=== PATIENT | male | born 1960 | race Caucasian/White ===

== ENCOUNTER → 2018-03-25 | Outpatient (CLI) | payer OTHER ==
[2018-03-25 18:15] LABS: Basophils % (A) 1 %; Eosinophils # (A) 0.2 k/uL (0-0.7); Eosinophils % (A) 3 %; HCT 46.2 % (39.0-53.0); Lymphocytes # (A) 1.8 k/uL (1.0-4.8); Lymphocytes % (A) 33 %; MCH 30.6 pg (25.0-35.0); MCHC 32.4 g/dL (31.0-37.0); MCV 94.7 fL (80.0-100.0); Mean Platelet Volume 6.6; Monocytes # (A) 0.3 k/uL (0-1.0); Monocytes % (A) 5 %; Neutrophils % (A) 57 %; Platelet Count 190 k/uL (150-450); RBC 4.88 m/uL (4.30-5.90); RDW 12.9 % (11.5-15.5); WBC 5.3 k/uL (3.8-10.6)
[2018-03-25 18:22] LABS: Calcium 9.8 mg/dL (8.4-10.2); Potassium 4.8 mmol/L (3.5-5.1)
== END | disposition home or self-care (01) ==
LOC: LABPAT 16:28
PROVIDERS: ATTEND Urology
DX: Z01.818 Encounter for other preprocedural examination (principal); Z01.812 Encounter for preprocedural laboratory examination; R53.83 Other fatigue; C61 Malignant neoplasm of prostate; Z79.899 Other long term (current) drug therapy
CPT/HCPCS: 36415; 80048; 85025; 86850; 86900; 86901; 93005

== ENCOUNTER 2018-03-31 10:16 | Inpatient (IN) | payer OTHER ==
--- NOTE | 2018-03-30 11:37 | P.GSHP ---
History of Present Illness H&P Date: 03/24/18 Chief Complaint: Prostate cancer The patient is a 57-year-old white male evaluated for an elevated PSA level of 12.34. JULIA revealed the prostate to be moderately enlarged but a nodular. A repeat PSA level was 11.9. In view of this, he underwent a prostate ultrasound , revealing a prostate volume of 33 mL with no echogenic abnormalities. All 6 right-sided biopsies were negative. However, he was found to have Sarah 6 adenocarcinoma in the left lateral apex, and [place] 7 (4+3) adenocarcinoma at the left apex and left lateral base. Alternative treatment options were reviewed with the patient and his in detail. He is felt to be a poor candidate for active surveillance, and he was thus advised that optimal treatment would consist of radiation therapy or surgery. He has elected to undergo a robotic-assisted laparoscopic prostatectomy (RALP). Examination reveals a moderate left inguinal hernia, which will be repaired by Dr. Gay at the time of surgery. - Cardiovascular Cardiovascular: Denies chest pain - Respiratory Respiratory: Denies dyspnea - Genitourinary (Male) Genitourinary: Reports erectile dysfunction Past Medical History - Past Family History Mother Family Medical History: No Reported History Medications and Allergies Home Medications Medication Instructions Recorded Confirmed Type ALPRAZolam [Xanax] 0.25 mg PO DAILY PRN 03/25/18 03/25/18 History Citalopram Hydrobromide 40 mg PO HS 03/25/18 03/25/18 History [Citalopram HBr] Levothyroxine Sodium 125 mcg PO QAM 03/25/18 03/25/18 History Allergies Allergy/AdvReac Type Severity Reaction Status Date / Time No Known Allergies Allergy Verified 03/25/18 10:50 Surgical - Exam - General well developed, well nourished, no distress - Respiratory normal respiratory effort, clear to auscultation - Cardiovascular Rhythm: regular Abnormal Heart Sounds: no systolic murmur, no diastolic murmur, no rub, no S3 Gallop, no S4 Gallop, no click, no other - Abdomen Abdomen: soft, non tender, no guarding, no rigid, no rebound Hernia: inguinal (left) - Genitourinary normal penis with no external lesions, testicles non-tender - Rectum Rectum: normal sphincter tone, no masses, other (Prostate mildly enlarged and smooth) - Psychiatric oriented to time, oriented to person, oriented to place, speech is normal, memory intact Assessment and Plan (1) Adenocarcinoma of prostate Status: Acute Code(s): C61 - MALIGNANT NEOPLASM OF PROSTATE SNOMED Code(s): 999617863 Plan: Robotic-assisted laparoscopic prostatectomy (RALP) with bilateral pelvic lymphadenectomy. The procedure has been reviewed in detail with the patient and his . It has been decided to perform a right nerve sparing procedure. The anticipated perioperative course has been discussed, along with potential risks. These include anesthesia, bleeding, infection, neurovascular injury, bowel injury, urinary leak, lymphocele, and vesical neck contracture. The patient is aware of the likelihood of postoperative urinary incontinence, which may be permanent. He also understands the likelihood of erectile dysfunction despite preservation of the neurovascular bundles. The possible need to convert to an open procedure was discussed, as was the possible need for adjuvant therapy. The left inguinal hernia will be repaired by Dr. Gay as a combined procedure.
[~2018-03-31 10:16] MED LIST: DEXAMETHASONE SOD PHOSPHATE 10 MG/ML 1 ML VIAL IV ONE; HEPARIN SODIUM,PORCINE 5,000 UNIT/ML 1 ML VIAL SQ ONE; HYDROmorphone 0.5 MG/0.5 ML SYRINGE IVP PRN; LIDOCAINE 1% 20 ML VIAL (10MG/ML) FOR IV START INTRADERMA PRN; MIDAZOLAM (PF) 2 MG/2 ML VIAL IV PRN; ONDANSETRON 4 MG/2 ML VIAL IVP ONE; ceFAZolin IN SWFI 2 GM/20 ML SYRINGE IVP ONE; fentaNYL (PF) 50 MCG/ML 2 ML AMP IV PRN
[2018-03-31] MEDS: LACTATED RINGERS 1,000 ML IV SCH (11:11)
[2018-03-31] MEDS ORDERED: NEOSTIGMINE 1 MG/ML 10 ML VIAL ONE (11:33)
[2018-03-31] MEDS ORDERED: GLYCOPYRROLATE 0.2 MG/ML 2 ML VIAL ONE (11:33)
[2018-03-31] MEDS ORDERED: HYDROmorphone (PF) 1 MG/ML ONE (11:33)
[2018-03-31] MEDS ORDERED: fentaNYL (PF) 50 MCG/ML 2 ML AMP ONE (11:33)
[2018-03-31] MEDS ORDERED: LIDOCAINE 1% INJ 10MG/ML (20 ML MDV) ONE (11:33)
[2018-03-31] MEDS ORDERED: SUCCINYLCHOLINE CHLORIDE VIAL 200 MG/10 ML VIAL IV ONE (11:33)
[2018-03-31] MEDS ORDERED: MIDAZOLAM 2 MG/2 ML VIAL ONE (11:33)
[2018-03-31] MEDS ORDERED: PROPOFOL 10 MG/ML 20 ML VIAL IV ONE (11:33)
[2018-03-31] MEDS ORDERED: VECURONIUM 10 MG VIAL IV ONE (11:33)
[2018-03-31] MEDS ORDERED: BUPIVACAINE (PF) 0.25% 30 ML VIAL SQ ONE ×2 (12:29→17:16)
[2018-03-31] MEDS ORDERED: LACTATED RINGERS 1,000 ML IV ONE ×4 (12:50→18:13)
[2018-03-31] MEDS ORDERED: ACETAMINOPHEN TAB 325 MG TAB PO PRN (16:45)
--- NOTE | 2018-03-31 17:40 | P.OP ---
Date of Procedure: 03/31/18 Procedure(s) Performed: PREOPERATIVE DIAGNOSIS: Left inguinal hernia POSTOPERATIVE DIAGNOSIS: Same PROCEDURE: Bilateral laparoscopic inguinal hernia repair with mesh using the da Rahat robot SURGEON: Deidra EBL: Minimal ANESTHESIA: Gen. COMPLICATIONS: None OPERATIVE PROCEDURE: Patient was taken to the operating room by Dr. Burns for a da Rahat assisted laparoscopic prostatectomy. The peritoneum was incised by urology and the preperitoneal dissection took place. After the prostatectomy was complete I assessed the pelvis laparoscopically. A indirect left inguinal hernia had been identified and reduced. There was a suggestion of a possible indirect hernia on the right as well. I decided to place a probe with mesh bilaterally to cover all potential hernia sites. These were overlapped centrally. These covered both inguinal and femoral spaces. Once the mesh was appropriately placed without sutures the peritoneal closure took place. The peritoneal closure was very lengthy and required a total of 4 9 inch 20V lock sutures. A small defect was then later closed using a [id number] 3-0 Vicryl stitch in the peritoneum. This provided excellent closure. Away from the mesh site a few small 5-7 mm defects were left so that lymphatic fluid could drain back into the peritoneal cavity and not be trapped up against our mesh. The remainder the procedure will be dictated separately by Dr. Burns.
[2018-03-31] MEDS: ONDANSETRON 4 MG/2 ML VIAL IVP PRN (18:18)
--- NOTE | 2018-03-31 18:55 | P.OP ---
Date of Procedure: 03/31/18 Preoperative Diagnosis: Adenocarcinoma of the Prostate Postoperative Diagnosis: Same Procedure(s) Performed: Robotic-assisted Laparoscopic Prostatectomy (RALP) with Bilateral Pelvic Lymphadenectomy Anesthesia: SHAUN Surgeon: Gerald Burns Claims Analyst #1: Stephanie Coe Estimated Blood Loss (ml): 100 IV fluids (ml): 1,500 Pathology: other (Prostate, seminal vesicles, pelvic lymph nodes) Condition: stable Disposition: PACU Indications for Procedure: The patient is a 57-year-old white male evaluated for an elevated PSA level of 12.34. JULIA revealed the prostate to be moderately enlarged but a nodular. A repeat PSA level was 11.9. In view of this, he underwent a prostate ultrasound , revealing a prostate volume of 33 mL with no echogenic abnormalities. All 6 right-sided biopsies were negative. However, he was found to have Sarah 6 adenocarcinoma in the left lateral apex, and [place] 7 (4+3) adenocarcinoma at the left apex and left lateral base. Alternative treatment options were reviewed with the patient and his in detail. He is felt to be a poor candidate for active surveillance, and he was thus advised that optimal treatment would consist of radiation therapy or surgery. He has elected to undergo a robotic-assisted laparoscopic prostatectomy (RALP). Examination reveals a moderate left inguinal hernia, which will be repaired by Dr. Gay at the time of surgery. Operative Findings: No evidence of extraprostatic disease. The left inguinal hernia was identified , and was repaired by Dr. Gay. This will be dictated separately. Description of Procedure: The patient was taken in the operating room and placed in the dorsal lithotomy position, with his legs supported in Steven stirrups. He was carefully positioned on a beanbag for stability. The abdomen and external genitalia were prepped and draped sterilely. A Kirkpatrick catheter was inserted. The Veress needle was passed through the anterior abdominal wall immediately cephalad to the umbilicus, and insufflation was performed to a pressure of 20 mm Hg. Once insufflation was performed, the Veress needle was removed and a supraumbilical incision was made, through which a 12 mm camera port was placed. Under camera guidance, 3 8 mm robotic ports were placed, 2 on the left and one on the right. An additional 12 mm port was placed on the right lateral side for use as an pet care assistant port. A 5 mm port was placed to the right of the camera port for suction. The patient was placed in Trendelenburg position, and docking was then performed to the da Rahat system utilizing a 4-arm approach. The abdomen was examined. The sigmoid colon was mobilized out of the pelvis. The peritoneum was incised widely, lateral to the medial umbilical ligaments bilaterally, exposing the pubis. The peritoneum was then incised across the midline, allowing the bladder flap to be taken down. A direct left inguinal hernia was identified, and the hernia sac was carefully retracted back into the abdomen. The endopelvic fascia was opened bilaterally, and muscular attachments from the urogenital diaphragm were swept away from the prostate. Bilateral pelvic lymphadenectomies were performed in the standard fashion. The peritoneal incisions were extended in a cephalad direction, and the vas deferens were divided bilaterally. Margins of dissection were the bifurcation of the iliac vessels proximally, the circumflex iliac vein distally, the external iliac artery laterally, and the obturator nerve medially. A combination of sharp and blunt dissection was used. Care was taken to avoid any neurovascular injury, and the use of monopolar electrocautery was avoided immediately adjacent to neurovascular structures. The lymphatic package was clipped distally. No enlarged lymph nodes were encountered. There were no complications. The vesical neck was incised transversely, down to the lumen. The Kirkpatrick catheter was brought out through the anterior vesical neck incision and was used for traction. The posterior aspect of the vesical neck was incised, such that the full-thickness of the vesical neck was divided. The anterior layer of the Denonvilliers fascia was incised, exposing the vas deferens. Each were isolated and divided. Next, each of the seminal vesicles were dissected away from adjacent tissues, and vascular attachments were cauterized and divided. The posterior leaf of Denonvilliers fascia was incised transversely, allowing entry into the plane between the prostate and rectum. With lateral spreading, this plane was developed down to the apex. This exposed the lateral vascular pedicles bilaterally. These were clipped and divided in an antegrade fashion, down to the apex. The use of electrocautery was avoided on the right side, to prevent thermal damage to the nerves, and the plane of dissection on the right side was immediately adjacent to the prostate to preserve the neurovascular bundle. No attempt was made to preserve the left neurovascular bundle.. The remaining apical attachments were swept away from the prostate. The dorsal venous complex was incised, as well as periurethral tissue. At this point, only the urethra remained intact. This was transected immediately distal to the prostatic apex using cold scissors. The specimen was placed within a specimen bag. The dorsal venous complex was sutured using a V-Loc suture in a running fashion. The suture was passed through the periosteum of the pubis periurethral support. A second V-Loc suture was then used to place the Anthony stitch, incorporating the rhabdosphincter and the edge of Denonvilliers fascia. This allowed the bladder to be taken down to the urethra, leaving the vesical neck immediately adjacent to the urethra. The vesicourethral anastomosis was then performed using a V-Loc suture in a running fashion. After completing the anastomosis, an 18-Maltese Kirkpatrick catheter was placed and approximately 150 mL of 0.9 normal saline were instilled into the bladder. No extravasation of irrigant from the vesicourethral anastomosis was noted. A small amount of oozing was noted from the right lateral vascular pedicle, so Surgicel was placed over this. Tisseel was sprayed into the pelvis over the vascular pedicles, dorsal vein, and vesicourethral anastomosis. At this time, Dr. Gay performed an inguinal hernia repair, which he will dictate separately. Once this was completed, the patient was returned to the supine position. Undocking was performed, and the specimen bag sutures were passed through the camera port. After removing all the ports and allowing all of the CO2 to be released from the peritoneal cavity, the camera port incision was enlarged to allow removal of the surgical specimen. The fascia of this incision was then closed using 0 Vicryl suture in an interrupted figure-of- eight fashion. Each of the skin incisions were then closed using 4-0 Monocryl suture in a subcuticular fashion. Marcaine was injected at each of the incision sites. Dermabond was applied to each incision. The Kirkpatrick catheter was connected to gravity drainage. All sponge and needle counts were correct. The patient tolerated the procedure well was taken to the recovery room in stable condition.
[2018-03-31 19:48] VITALS: BMI 32.4
[2018-03-31] MEDS: KETOROLAC 30 MG/ML 1 ML VIAL IVP PRN (19:55)
[2018-03-31] MEDS: ALPRAZolam 0.25 MG TAB PO PRN (19:55)
[2018-03-31] MEDS: HEPARIN SODIUM,PORCINE 5,000 UNIT/ML 1 ML VIAL SQ SCH (19:56)
[2018-03-31] MEDS: CITALOPRAM HYDROBROMIDE 20 MG TAB PO SCH (21:27)
[2018-03-31] MEDS: DEXTROSE 5%-0.45% NACL 1,000 ML IV SCH (21:27)
[2018-04-01] MEDS: HYDROmorphone 1 MG/ML 1 ML SYRINGE IVP PRN ×2 (00:38→09:21)
[2018-04-01] MEDS ORDERED: SODIUM CHLORIDE 0.9% 500 ML 500 ML IV ONE (02:05)
[2018-04-01] MEDS: DEXTROSE 5%-0.45% NACL 1,000 ML IV SCH ×3 (03:28→21:45)
[2018-04-01] MEDS: LACTATED RINGERS 1,000 ML IV SCH (03:28)
[2018-04-01] MEDS: KETOROLAC 30 MG/ML 1 ML VIAL IVP PRN (04:05)
[2018-04-01] MEDS: ONDANSETRON 4 MG/2 ML VIAL IVP PRN ×2 (04:16→16:19)
[2018-04-01] MEDS: LEVOTHYROXINE 125 MCG TAB PO SCH (06:04)
[2018-04-01] MEDS: HEPARIN SODIUM,PORCINE 5,000 UNIT/ML 1 ML VIAL SQ SCH ×2 (09:21→20:03)
[2018-04-01] MEDS ORDERED: HYDROcodone/APAP 5-325MG 1 EACH TAB PO PRN (11:26)
--- NOTE | 2018-04-01 12:19 | P.PN ---
<ChelNathalia Sandra - Last Filed: 04/01/18 12:16> Subjective Progress Note Date: 04/01/18 HISTORY OF PRESENT ILLNESS: Patient is s/p bilateral inguinal hernia repair. POD #1. Patient states his pain is tolerable. Passing flatus. Tolerating liquid diet. Requesting diet to be advanced. PHYSICAL EXAM: VITAL SIGNS: Currently stable. GENERAL: Well-developed in no acute distress. HEENT: No sclera icterus. Extraocular movements grossly intact. Moist buccal mucosa. Head is atraumatic, normocephalic. Hears conversational speech. No nasal drainage. NECK: Supple without lymphadenopathy. CHEST: Non-labored respirations and equal bilateral excursions. CARDIOVASCULAR: Regular rate with regular rhythm. Palpable 2+ radial pulses. ABDOMEN: Soft. Nondistended. Surgical incision sites clean and dry without drainage. MUSCULOSKELETAL: No clubbing, cyanosis or edema. NEUROLOGIC: No focal or lateralizing signs. Cranial nerves II through XII grossly intact. PSYCH: Appropriate affect. Alert and oriented to person, place and time. SKIN: Well perfused. Good skin turgor. ASSESSMENT: 1. S/P bilateral inguinal hernia repair PLAN: 1. May advance diet as tolerated 2. Pain control 3. Incentive spirometry 4. Increase activity as tolerated Nurse practitioner note has been reviewed by physician. Signing provider agrees with the documented findings, assessment, and plan of care. Objective - Vital Signs Vital signs: Vital Signs Temp 98.5 F 04/01/18 07:00 Pulse 66 04/01/18 07:00 Resp 16 04/01/18 07:00 BP 94/53 04/01/18 07:00 Pulse Ox 95 04/01/18 07:00 Intake & Output 03/31/18 04/01/18 04/01/18 18:59 06:59 18:59 Intake Total 3200 375 Output Total 540 400 Balance 2660 -25 Intake: IV 3200 Intake, IV Titration 375 Amount Dextrose 5%-0.45% NaCl 1, 375 000 ml @ 125 mls/hr IV . Q8H [facility] Rx#:[id number] Output: Urine 440 400 Estimated Blood Loss 100 Other: Voiding Method Indwelling Catheter Indwelling Catheter <Ford Gay - Last Filed: 04/01/18 16:44> Subjective As above. Patient doing well. Pain is well-controlled. He would like to go home today. Follow-up as outpatient. Objective - Vital Signs Vital signs: Vital Signs Temp 98.5 F 04/01/18 07:00 Pulse 64 04/01/18 15:00 Resp 16 04/01/18 15:00 BP 108/56 04/01/18 15:00 Pulse Ox 98 04/01/18 15:00 Intake & Output 03/31/18 04/01/18 04/01/18 18:59 06:59 18:59 Intake Total 3200 375 Output Total 637 501 1745 Balance 2659 Intake: IV 3200 Intake, IV Titration 375 Amount Dextrose 5%-0.45% NaCl 1, 375 000 ml @ 125 mls/hr IV . Q8H [facility] Rx#:[id number] Output: Urine 815 959 1804 Uretheral (Kirkpatrick) 1600 Estimated Blood Loss 100 Other: Voiding Method Indwelling Catheter Indwelling Catheter
[2018-04-01] MEDS: HYDROcodone/APAP 5-325MG 1 EACH TAB PO PRN ×2 (14:44→19:16)
--- NOTE | 2018-04-01 18:19 | P.PN ---
Subjective Progress Note Date: 04/01/18 Principal diagnosis: POD #1, s/p RALP Patient was oliguric overnight but responded to fluid bolus. He is tolerating CLD but reports gas pain. Was somewhat dizzy when he ambulated. Objective - Vital Signs Vital signs: Vital Signs Temp 98.5 F 04/01/18 07:00 Pulse 64 04/01/18 15:00 Resp 16 04/01/18 15:00 BP 108/56 04/01/18 15:00 Pulse Ox 98 04/01/18 15:00 Intake & Output 03/31/18 04/01/18 04/01/18 18:59 06:59 18:59 Intake Total 3200 375 Output Total 860 407 7611 Balance 2660 Intake: IV 3200 Intake, IV Titration 375 Amount Dextrose 5%-0.45% NaCl 1, 375 000 ml @ 125 mls/hr IV . Q8H [facility] Rx#:[id number] Output: Urine 946 580 5414 Uretheral (Kirkpatrick) 1600 Estimated Blood Loss 100 Other: Voiding Method Indwelling Catheter Indwelling Catheter - Constitutional General appearance: Present: average body habitus, cooperative, no acute distress - Gastrointestinal Gastrointestinal Comment(s): Soft, non-distended. Incisions clean and dry. Urine clear per Kirkpatrick. Assessment and Plan (1) Adenocarcinoma of prostate Current Visit: Yes Status: Acute Code(s): C61 - MALIGNANT NEOPLASM OF PROSTATE SNOMED Code(s): 088691249 Plan: Patient is overall doing well. Ambulation encouranged. Anticipate discharge home tomorrow.
[2018-04-01] MEDS: CITALOPRAM HYDROBROMIDE 20 MG TAB PO SCH (20:03)
[2018-04-01] MEDS: ALPRAZolam 0.25 MG TAB PO PRN (20:21)
[2018-04-02] MEDS: HYDROcodone/APAP 5-325MG 1 EACH TAB PO PRN ×3 (00:32→09:31)
[2018-04-02] MEDS: DEXTROSE 5%-0.45% NACL 1,000 ML IV SCH ×2 (03:01→09:30)
[2018-04-02] MEDS: LEVOTHYROXINE 125 MCG TAB PO SCH (05:09)
[2018-04-02] MEDS: LACTATED RINGERS 1,000 ML IV SCH (05:09)
[2018-04-02 07:32] VITALS: BP 95/60; PULSE 64; RESP 12; TEMP 98
[2018-04-02] MEDS: HEPARIN SODIUM,PORCINE 5,000 UNIT/ML 1 ML VIAL SQ SCH (08:15)
--- NOTE | 2018-04-02 09:33 | P.DS ---
Providers Date of admission: 03/31/18 10:16 Expected date of discharge: 04/02/18 Attending physician: Gerald Burns Primary care physician: Checo Haji - Discharge Diagnosis(es) (1) Adenocarcinoma of prostate Current Visit: Yes Status: Acute Hospital Course: On the day of admission, the patient underwent an uncomplicated robotic assisted laparoscopic prostatectomy (RALP) with bilateral pelvic lymphadenectomy and inguinal hernia repair. He was somewhat oliguric on the night of surgery, but responded well to a fluid bolus. He remained afebrile with stable vital signs throughout the postoperative course. He reported significant discomfort and some nausea on the first postoperative day, which was much improved on the second postoperative day. He was tolerating clear liquids and ambulating without difficulty. The incisions were clean and dry. Procedures: RALP with bilateral pelvic lymphadenectomy and inguinal hernia repair on 2018. Patient Condition at Discharge: Good Plan - Discharge Summary Discharge Rx Participant: Yes New Discharge Prescriptions: New Ciprofloxacin HCl [Cipro] 250 mg PO Q12HR #6 tablet Hydrocodone/Acetaminophen [[place] 5-325] 1 - 2 each PO Q4HR PRN #6 tab PRN Reason: Pain No Action ALPRAZolam [Xanax] 0.25 mg PO DAILY PRN PRN Reason: Anxiety Levothyroxine Sodium 125 mcg PO QAM Citalopram Hydrobromide [Citalopram HBr] 40 mg PO HS Discharge Medication List ALPRAZolam [Xanax] 0.25 mg PO DAILY PRN 03/25/18 [History] Citalopram Hydrobromide [Citalopram HBr] 40 mg PO HS 03/25/18 [History] Levothyroxine Sodium 125 mcg PO QAM 03/25/18 [History] Ciprofloxacin HCl [Cipro] 250 mg PO Q12HR #6 tablet 04/01/18 [Rx] Hydrocodone/Acetaminophen [[place] 5-325] 1 - 2 each PO Q4HR PRN #6 tab 04/01/18 [ Rx] Follow up Appointment(s)/Referral(s): Ford Gay MD [Medical Doctor] - 04/21/18 8:40 am Gerald Burns MD [STAFF PHYSICIAN] - 04/08/18 2:20 pm Patient Instructions/Handouts: Kirkpatrick Catheter Placement and Care (DC), Urinary Leg Bag (GEN) Activity/Diet/Wound Care/Special Instructions: Discharge home with Kirkpatrick catheter. Instruct patient to use overnight drainage bag as well as urinary leg bag. Okay to shower. Diet as tolerated. No lifting , driving, or strenuous activity. Reassure patient that abdominal wall ecchymosis and penoscrotal swelling are normal. Instruct patient to begin taking antibiotics one day prior to Kirkpatrick catheter removal. Discharge Disposition: HOME SELF-CARE
== END 2018-04-02 11:15 | disposition home or self-care (01) | DRG 708 ==
LOC: 2ORMAIN 10:16 → 4SSUR 17:28
PROVIDERS: ADMIT Urology; ATTEND Urology
PROC: 0VT04ZZ Resection of Prostate, Percutaneous Endoscopic Approach (ICD-10-PCS; 2018-03-31)
PROC: 07TC4ZZ Resection of Pelvis Lymphatic, Percutaneous Endoscopic Approach (ICD-10-PCS; 2018-03-31)
PROC: 8E0W4CZ Robotic Assisted Procedure of Trunk Region, Percutaneous Endoscopic Approach (ICD-10-PCS; 2018-03-31)
PROC: 0YUA4JZ Supplement Bilateral Inguinal Region with Synthetic Substitute, Percutaneous Endoscopic Approach (ICD-10-PCS; principal; 2018-03-31 12:00)
PROC: 8E0W4CZ Robotic Assisted Procedure of Trunk Region, Percutaneous Endoscopic Approach (ICD-10-PCS; 2018-03-31 12:00)
DX: C61 Malignant neoplasm of prostate (principal); K40.20 Bilateral inguinal hernia, without obstruction or gangrene, not specified as recurrent; N52.9 Male erectile dysfunction, unspecified; Z79.890 Hormone replacement therapy; Z79.899 Other long term (current) drug therapy
CPT/HCPCS: 86850; 86900; 86901; 88305; 88307; 88309

== ENCOUNTER → 2018-05-05 | Outpatient (CLI) | payer OTHER | LOC: LABWHC1 17:11 | PROVIDERS: ATTEND Urology | DX: C61 Malignant neoplasm of prostate (principal) | CPT/HCPCS: 36415; 84153 ==

== ENCOUNTER 2020-07-25 07:35 | Day surgery (SDC) | payer OTHER ==
[2020-07-24 08:51] VITALS: BMI 34.5
[~2020-07-25 07:35] MED LIST changes: -DEXAMETHASONE SOD PHOSPHATE 10 MG/ML 1 ML VIAL IV ONE; +DEXAMETHASONE SOD PHOSPHATE 4 MG/ML 1 ML VIAL IV ONE; +DEXAMETHASONE SOD PHOSPHATE 4 MG/ML 1 ML VIAL IV PRN; +FAMOTIDINE 20 MG/2 ML VIAL IV PRN; -HEPARIN SODIUM,PORCINE 5,000 UNIT/ML 1 ML VIAL SQ ONE; +LACTATED RINGERS 1,000 ML IV SCH; -LIDOCAINE 1% 20 ML VIAL (10MG/ML) FOR IV START INTRADERMA PRN; -MIDAZOLAM (PF) 2 MG/2 ML VIAL IV PRN; +ONDANSETRON 4 MG/2 ML VIAL IVP PRN; -ceFAZolin IN SWFI 2 GM/20 ML SYRINGE IVP ONE; -fentaNYL (PF) 50 MCG/ML 2 ML AMP IV PRN
[2020-07-25] MEDS ORDERED: LIDOCAINE 1% (10MG/ML) FOR IV START INTRADERMA ONE (08:15)
[2020-07-25] MEDS ORDERED: SCOPOLAMINE 1.5MG/72HR PATCH TRANSDERM ONE (08:20)
[2020-07-25] MEDS ORDERED: DEXAMETHASONE SOD PHOSPHATE 4 MG/ML 1 ML VIAL IV ONE (08:20)
[2020-07-25] MEDS ORDERED: ONDANSETRON 4 MG/2 ML VIAL IVP ONE (08:20)
[2020-07-25] MEDS ORDERED: LIDOCAINE 1% INJ 10MG/ML (20 ML MDV) ONE (09:17)
[2020-07-25] MEDS ORDERED: ePHEDrine SULFATE/0.9% NACL/PF 50 MG/5 ML SYRINGE IV ONE (09:17)
[2020-07-25] MEDS ORDERED: SUCCINYLCHOLINE CHLORIDE VIAL 200 MG/10 ML VIAL IV ONE (09:17)
[2020-07-25] MEDS ORDERED: fentaNYL (PF) 50 MCG/ML 2 ML AMP ONE (09:17)
[2020-07-25] MEDS ORDERED: MIDAZOLAM 2 MG/2 ML VIAL ONE (09:17)
[2020-07-25] MEDS ORDERED: PROPOFOL 10 MG/ML 20 ML VIAL IV ONE (09:17)
[2020-07-25] MEDS ORDERED: LIDOCAINE 2%-EPI 1:100,000 20 ML VIAL SQ ONE ×2 (09:45)
[2020-07-25] MEDS ORDERED: BUPIVACAINE (PF) 0.5% 30 ML VIAL SQ ONE (09:50)
[2020-07-25] MEDS ORDERED: BACITRACIN 50,000 UNIT VIAL TOPICAL ONE (10:16)
[2020-07-25 10:38] VITALS: TEMP 97.1
--- NOTE | 2020-07-25 10:49 | P.OP ---
Date of Procedure: 07/25/20 Preoperative Diagnosis: 10 by 4 cm occipital mass Postoperative Diagnosis: Same Procedure(s) Performed: Excision of a 10 x 4 cm occipital mass with complex closure Anesthesia: JULIENA Surgeon: Tarun Guzman Estimated Blood Loss (ml): 20 Pathology: other (Occipital mass) Condition: stable Disposition: PACU Indications for Procedure: This patient first noticed a occipital mass approximately 1 year ago. Over the last 2 months it has grown relatively quickly and surgical removal was recommended. All risks, benefits, and alternative therapies were discussed. Consent was obtained and all questions were answered. Operative Findings: Large occipital mass with a lymphoid appearance tightly adherent to the surrounding tissue suspect malignancy suspected lymphoma pending pathology analysis Description of Procedure: This patient was taken to the operative room and placed in the supine position a general inhalation anesthetic was administered the patient by mask and subsequently intubated with a cuffed endotracheal tube the department of anesthesia with a functioning IV line in place. The patient was monitored throughout the entire case by the department of anesthesia. The hair was removed from the overlying mass and the patient was placed in a lateral recumbent position. The area was injected with lidocaine and bupivacaine with epinephrine and 10 minutes were allowed wait for full vasoconstrictive effects t o take place. An incision was made overlying this mass and we dissected the skin and surrounding tissues away from the mass. His mass closure 10 x 4 cm and was found to be tightly adherent to the surrounding tissue. This mass was completely removed with meticulous dissection. Hemostasis was obtained with use of electrocauterization and the use of 10 mL of FloSeal. Extensive undermining was performed in all directions and this was closed with a complex closure utilizing 3-0 PDS and deep subcutaneous tissue 3-0 PDS and a deep dermal layer 4-0 Monocryl in the mid dermal layer and the skin was closed with a 50 rapid Vicryl in a running locking fashion. Excellent approximation was obtained. Follow-up will be in the office in 1 week. A frozen section was requested regarding this suspicious mass but they were unable to make a diagnosis.
[2020-07-25 11:40] VITALS: RESP 18
[2020-07-25 11:53] VITALS: BP 132/78; PULSE 78
== END 2020-07-25 12:08 | disposition home or self-care (01) ==
LOC: OR 07:35
PROVIDERS: ATTEND Otolaryngology
DX: C83.31 Diffuse large B-cell lymphoma, lymph nodes of head, face, and neck (principal); E03.9 Hypothyroidism, unspecified; L71.9 Rosacea, unspecified; Z98.890 Other specified postprocedural states; Z79.890 Hormone replacement therapy; Z79.899 Other long term (current) drug therapy; Z87.891 Personal history of nicotine dependence; G47.33 Obstructive sleep apnea (adult) (pediatric); Z85.46 Personal history of malignant neoplasm of prostate; F41.9 Anxiety disorder, unspecified; F32.9 Major depressive disorder, single episode, unspecified
CPT/HCPCS: 21554; 88305; 88342; 88331; 88309; 88341; C1762; J2250; J0330; J1100; J2405; J0690; J2001; J3010; J2704

== ENCOUNTER → 2020-08-15 | Outpatient (CLI) | payer OTHER ==
--- NOTE | 2020-08-15 11:05 | ECHOF ---
Referral Reason:[id number] MEASUREMENTS -------- HEIGHT: 182.9 cm WEIGHT: 117.9 kg BP: 126/71 RVIDd: 3.5 cm (< 3.3) IVSd: 1.3 cm (0.6 - 1.1) LVIDd: 4.7 cm (3.9 - 5.3) LVPWd: 1.4 cm (0.6 - 1.1) IVSs: 2.0 cm LVIDs: 2.4 cm LVPWs: 1.6 cm LAESV Index (A-L): 24.19 ml/m Ao Diam: 3.7 cm (2.0 - 3.7) AV Cusp: 2.4 cm (1.5 - 2.6) MV EXCURSION: 22.495 mm (> 18.000) MV EF SLOPE: 144 mm/s (70 - 150) EPSS: 0.4 cm MV E Nestor: 0.64 m/s MV DecT: 319 ms MV A Nestor: 0.85 m/s MV E/A Ratio: 0.74 FINDINGS -------- Sinus rhythm. This was a technically adequate study. The left ventricular size is normal. There is mild concentric left ventricular hypertrophy. Overa ll left ventricular systolic function is normal with, an EF between 60 - 65 %. The right ventricle is mildly enlarged. Normal LA size by volume 22+/-6 ml/m2. The right atrium is normal in size. Interatrial and interventricular septum intact. There is mild aortic valve sclerosis. The mitral valve is normal. The tricuspid valve appears structurally normal. Unable to estimate RVSP due to inadequate TR jet s pectral doppler profile. There is no pulmonic regurgitation present. The aortic root size is normal. IVC Not well visulized. There is no pericardial effusion. CONCLUSIONS -------- 1. The left ventricular size is normal. 2. There is mild concentric left ventricular hypertrophy. 3. Overall left ventricular systolic function is normal with, an EF between 60 - 65 %. 4. The right ventricle is mildly enlarged. 5. There is no pericardial effusion. TENN[employer] DESK TEAM MEMBER: Apple Guevara [facility]
== END | disposition home or self-care (01) ==
LOC: RADECHMAIN 08:23
PROVIDERS: ATTEND Internal Medicine Hematology & Oncology
DX: Z01.818 Encounter for other preprocedural examination (principal); I51.7 Cardiomegaly
CPT/HCPCS: 93306

== ENCOUNTER 2020-08-16 09:18 | Day surgery (SDC) | payer OTHER ==
[2020-08-15 08:38] VITALS: BMI 36.2
[~2020-08-16 09:18] MED LIST changes: +ACETAMINOPHEN TAB 500 MG TAB PO PRN; -DEXAMETHASONE SOD PHOSPHATE 4 MG/ML 1 ML VIAL IV PRN; -FAMOTIDINE 20 MG/2 ML VIAL IV PRN; +HEPARIN SODIUM,PORCINE/PF 5,000 UNIT/0.5 ML SYRINGE SQ PRN; +MIDAZOLAM 2 MG/2 ML VIAL IV PRN; -ONDANSETRON 4 MG/2 ML VIAL IVP PRN; +Pre Op ABX Message 1 EACH MISC MISCELLANE ONE; +SCOPOLAMINE 1.5MG/72HR PATCH TRANSDERM ONE
[2020-08-16] MEDS ORDERED: LIDOCAINE 1% (10MG/ML) FOR IV START INTRADERMA ONE (09:50)
[2020-08-16] MEDS ORDERED: ceFAZolin 3 GM in SODIUM CHLORIDE 0.9% 100 ML IVPB STA (10:34)
--- NOTE | 2020-08-16 10:35 | P.GSHP ---
History of Present Illness H&P Date: 08/16/20 Chief Complaint: Lymphoma 60-year-old male with recent diagnosis of B-cell lymphoma. Patient was seen by oncology. He is starting chemotherapy next week. Patient here today for Port-A-Cath placement for administration of chemotherapy. Past Medical History Past Medical History: Cancer, Sleep Apnea/CPAP/BIPAP, Thyroid Disorder Additional Past Medical History / Comment(s): prostate CA-no radiation or chemo 2019,uses cpap, recent dx of lymphoma History of Any Multi-Drug Resistant Organisms: None Reported Past Surgical History: Prostate Surgery Additional Past Surgical History / Comment(s): FACIAL SURGERY,prostatectomy, mass removed from back of neck 07/25/20 Past Anesthesia/Blood Transfusion Reactions: Postoperative Nausea & Vomiting (PONV) Smoking Status: Former smoker - Past Family History Mother Family Medical History: No Reported History Medications and Allergies Home Medications Medication Instructions Recorded Confirmed Type Citalopram Hydrobromide 40 mg PO HS 03/25/18 08/15/20 History [Citalopram HBr] Levothyroxine Sodium 125 mcg PO QAM 03/25/18 08/15/20 History Meloxicam 15 mg PO DAILY 08/15/20 08/15/20 History Allergies Allergy/AdvReac Type Severity Reaction Status Date / Time No Known Allergies Allergy Verified 08/16/20 09:38 Surgical - Exam Vital Signs Temp Pulse Resp BP Pulse Ox 97.7 F 68 16 114/87 96 08/16/20 09:42 08/16/20 09:42 08/16/20 09:42 08/16/20 09:42 08/16/20 09:42 Physical exam: General: Well-developed, well-nourished HEENT: Normocephalic, sclerae nonicteric Abdomen: Nontender, nondistended Extremities: No edema Neuro: Alert and oriented Assessment and Plan (1) Lymphoma Narrative/Plan: Will proceed with Port-A-Cath placement at this time. Risks of bleeding, infection, DVT, pneumothorax, catheter malfunction, anesthesia related complications were discussed. The patient understands and wishes to proceed. Current Visit: Yes Status: Acute Code(s): C85.90 - NON-HODGKIN LYMPHOMA, U NSPECIFIED, UNSPECIFIED SITE SNOMED Code(s): 055410357
[2020-08-16] MEDS ORDERED: LIDOCAINE 1% INJ 10MG/ML (20 ML MDV) ONE (10:46)
[2020-08-16] MEDS ORDERED: PROPOFOL 10 MG/ML 20 ML VIAL IV ONE (10:46)
[2020-08-16] MEDS ORDERED: MIDAZOLAM 2 MG/2 ML VIAL ONE (10:46)
[2020-08-16] MEDS ORDERED: SUCCINYLCHOLINE CHLORIDE 100 MG/5 ML SYR IV ONE (10:46)
[2020-08-16] MEDS ORDERED: fentaNYL (PF) 50 MCG/ML 2 ML AMP ONE (10:46)
[2020-08-16] MEDS ORDERED: LIDOCAINE (PF) 10 MG/ML 2 ML VIAL SQ ONE (11:19)
[2020-08-16] MEDS ORDERED: HEPARIN SODIUM,PORCINE 100 UNIT/ML 5 ML VIAL IV ONE (11:19)
[2020-08-16] MEDS ORDERED: HYDROcodone/APAP 5-325MG 1 EACH TAB PO PRN (11:55)
[2020-08-16] MEDS ORDERED: NALOXONE 0.4 MG/ML 1 ML VIAL IV PRN (11:55)
--- NOTE | 2020-08-16 11:57 | P.OP ---
Date of Procedure: 08/16/20 Procedure(s) Performed: PREOPERATIVE DIAGNOSIS: Lymphoma POSTOPERATIVE DIAGNOSIS: Same PROCEDURE: Port-A-Cath placement with fluoroscopic and ultrasound guidance SURGEON: Deidra EBL: Minimal ANESTHESIA: Sedation COMPLICATIONS: None OPERATIVE PROCEDURE: Patient was brought and placed on the operative table in the supine position. The patient was sedated per anesthesia that time. The chest and neck were prepped and draped in usual sterile fashion. The ultrasound probe was used to identify the location of the right internal jugular vein. The skin was localized with lidocaine. The Seldinger needle was advanced into the IJ under ultrasound guidance. The wire was advanced through the needle under fluoroscopic guidance into the superior vena cava. A port pocket was created in the right infraclavicular location. The catheter was tunneled from the wire entrance site to the port pocket. The port was then connected to the catheter. The dilator introducer was threaded over the guidewire. The guidewire and dilator were then removed. The catheter was advanced through the introducer and introducer was then removed. The tip was seen to be in the right atrial junction via fluoroscopy. A picture of the radiograph showing the tip at the radial digital junction was taken. Port was flushed with both saline and a Hep- Lock solution. There was good flow both in and out of the port. The port was sutured in underlying tissues using 3-0 silk sutures. The subcutaneous tissues were reapproximated using 3-0 Vicryl sutures and the skin at both locations using 4-0 Monocryl sutures. Skin glue and sterile dressings then applied. DISPOSITION: Stable to recovery room
[2020-08-16 12:08] VITALS: TEMP 97
[2020-08-16 12:21] VITALS: RESP 16
--- NOTE | 2020-08-16 12:25 | XR ---
EXAMINATION TYPE: XR chest 1V confirm line [facility] DATE OF EXAM: 08/16/2020 HISTORY: Shortness of breath. COMPARISON: None. TECHNIQUE: Single view of the chest is submitted. FINDINGS: MediPort catheter is noted with its distal tip overlying the SVC. No evidence for pneumothorax. There is no evidence for focal infiltrate. The heart is stable. Hilar and mediastinal structures are within normal limits. Degenerative changes are seen of the dorsal spine. IMPRESSION: 1. Chronic changes without evidence for acute pulmonary disease.
--- NOTE | 2020-08-16 12:29 | FL ---
Fluoroscopy History: PORT A CATH Fluoroscopy utilized for Port-A-Cath placement.
[2020-08-16 12:59] VITALS: PULSE 70
[2020-08-16 13:17] VITALS: BP 119/73
== END 2020-08-16 13:20 | disposition home or self-care (01) ==
LOC: OR 09:18
PROVIDERS: ATTEND Surgery
DX: Z45.2 Encounter for adjustment and management of vascular access device (principal); C85.10 Unspecified B-cell lymphoma, unspecified site; Z79.1 Long term (current) use of non-steroidal anti-inflammatories (NSAID); Z79.899 Other long term (current) drug therapy; Z85.46 Personal history of malignant neoplasm of prostate; Z87.891 Personal history of nicotine dependence; Z90.79 Acquired absence of other genital organ(s)
CPT/HCPCS: 36561; 77001; C1788; J2250; J2001 ×2; J1642; J1100; J0690; J2405; J3010; J0330; J2704; J1644

== ENCOUNTER → 2020-10-18 | Outpatient (CLI) | payer OTHER ==
--- NOTE | 2020-10-22 06:37 | PE ---
EXAMINATION TYPE: PET CT fusion skull to thigh DATE OF EXAM: 10/18/2020 COMPARISON: Outside PET/CT August 13, 2020 HISTORY: History of diffuse large B-cell lymphoma diagnosed right neck July 2020 completed chemothera py 2 weeks ago. History of prostate cancer 2019 TECHNIQUE: Following the intravenous administration of 11.54 mCi of F-18 FDG, whole body images are performed from the skull base to the midthigh. Images are reviewed on the computer in the coronal, a xial, and sagittal planes. Reconstructed rotating images are created on independent workstation and reviewed on the computer. A localization and attenuation correction CT is performed in conjunction with the PET scan. Blood glucose level equals 109. SCAN: Subsequent Scan FINDINGS: Mean SUV mediastinum: 1.2 Mean SUV liver: 2.24 SKULL BASE AND NECK: Abnormal soft tissue right occipital region diminished in size measuring 5.2 x 1.3 cm axial image 24 versus 7.3 x 2.1 cm prior study image 21, max SUV at this level significantly i mproved is 1.92 versus 19.2 noted on prior outside report. No new areas of abnormal hypermetabolic uptake. CHEST, MEDIASTINUM, AND HILAR REGION: No new areas of abnormal hypermetabolic uptake. ABDOMEN AND PELVIS: Normal excretion is present. No new areas of abnormal hypermetabolic uptake. OSSEOUS STRUCTURES: New Mild diffuse osseous uptake presumed post treatment response. OTHER CT: New Right internal jugular Mediport catheter terminating just past brachiocephalic confluen ce. Moderate coronary artery calcification. Low lung volumes. Mild cardiomegaly. Xuqg-bg-[id number] bib asilar linear scarring and/or atelectasis. Rim calcified gallstone redemonstrated. Mild fat replaced atrophy of the pancreas again seen. Prostat e surgically absent. Scattered tiny pelvic phleboliths noted. Multilevel spurring in the spine. IMPRESSION: Interval positive treatment response as detailed above.
== END | disposition home or self-care (01) ==
LOC: RADPETMAIN 10:22
PROVIDERS: ATTEND Internal Medicine Hematology & Oncology
DX: C83.31 Diffuse large B-cell lymphoma, lymph nodes of head, face, and neck (principal); M79.89 Other specified soft tissue disorders; I25.10 Atherosclerotic heart disease of native coronary artery without angina pectoris; R91.8 Other nonspecific abnormal finding of lung field; K80.20 Calculus of gallbladder without cholecystitis without obstruction; K86.89 Other specified diseases of pancreas; Z85.72 Personal history of non-Hodgkin lymphomas; Z85.46 Personal history of malignant neoplasm of prostate
CPT/HCPCS: 78815; A9552

== ENCOUNTER → 2021-01-03 | Outpatient (CLI) | payer OTHER ==
--- NOTE | 2021-01-06 08:22 | PE ---
EXAMINATION TYPE: PET CT fusion skull to thigh DATE OF EXAM: 01/03/2021 COMPARISON: Prior PET/CT October 18, 2020 and August 13, 2020 HISTORY: Large B-cell lymphoma diagnosed on back of neck excision July 2020. Completed chemotherapy 4 weeks ago. History of prostate cancer 2019. TECHNIQUE: Following the intravenous administration of 7.66 mCi of F-18 FDG, whole body images are p erformed from the skull base to the midthigh. Images are reviewed on the computer in the coronal, ax ial, and sagittal planes. Reconstructed rotating images are created on independent workstation and r eviewed on the computer. A localization and attenuation correction CT is performed in conjunction w ith the PET scan. Blood glucose level equals 95. SCAN: Subsequent Scan FINDINGS: Mean SUV mediastinum: 0.81 Mean SUV liver: 2.25 SKULL BASE AND NECK: Abnormal soft tissue right occipital region stable in size measuring approximat tia 5.3 cm in length axial image 17 versus 7 most recent prior study image 22, max SUV at this level is 2.2 to versus 1.92 on most recent prior. Mild adjacent skin thickening redemonstrated. No new areas of abnormal hypermetabolic uptake in the neck. CHEST, MEDIASTINUM, AND HILAR REGION: No new areas of abnormal hypermetabolic uptake. ABDOMEN AND PELVIS: Normal excretion is present. No new areas of abnormal hypermetabolic uptake. OSSEOUS STRUCTURES: Marked improvement in Mild diffuse osseous uptake presumed post treatment respons e. No new areas of suspicious hypermetabolic focal uptake OTHER CT: Stable Right internal jugular Mediport catheter . Mild to moderate coronary artery calcific ation redemonstrated. Low lung volumes with elevated right hemidiaphragm redemonstrated. Stable Mild cardiomegaly. Onjq-ow-weepcdkf bibasilar linear scarring and/or atelectasis redemonstrated. Rim calcified gallstone redemonstrated. Mild fat replaced atrophy of the pancreas again seen. Prostat e surgically absent. Scattered tiny pelvic phleboliths redemonstrated. Multilevel spurring in the spi ne. Increased cervical curvature cause spinal canal narrowing or stenosis in the cervical spine simil ar to prior studies IMPRESSION: Continued positive treatment response. No new areas of abnormal hypermetabolic adenopathy or disease identified.
== END | disposition home or self-care (01) ==
LOC: RADPETMAIN 13:15
PROVIDERS: ATTEND Internal Medicine Hematology & Oncology
DX: C83.31 Diffuse large B-cell lymphoma, lymph nodes of head, face, and neck (principal); Z85.46 Personal history of malignant neoplasm of prostate
CPT/HCPCS: 78815; A9552

== ENCOUNTER 2021-01-12 12:29 | Emergency (ER) | payer OTHER ==
--- NOTE | 2021-01-12 13:41 | ED ---
URI HPI - General Chief Complaint: Upper Respiratory Infection Stated Complaint: cough Time Seen by Provider: 01/12/21 12:34 Source: patient, RN notes reviewed Mode of arrival: ambulatory Limitations: no limitations - History of Present Illness Initial Comments: Patient is a 60-year-old male with history of lymphoma, thyroid disorder, presenting to emergency Department with complaints of a cough, chest congestion over the past day. He would like a cold test. He denies any fevers or chills, no abdominal pain, no nausea or vomiting. He has no chest pain or shortness of breath. He states he's been taking Mucinex at home. Patient has no further complaints. His vital signs are stable upon arrival. - Related Data Home Medications Medication Instructions Recorded Confirmed Citalopram Hydrobromide 40 mg PO HS 03/25/18 08/15/20 [Citalopram HBr] Levothyroxine Sodium 125 mcg PO QAM 03/25/18 08/15/20 Meloxicam 15 mg PO DAILY 08/15/20 08/15/20 Allergies Allergy/AdvReac Type Severity Reaction Status Date / Time No Known Allergies Allergy Verified 01/12/21 12:49 Review of Systems ROS Statement: Those systems with pertinent positive or pertinent negative responses have been documented in the HPI. ROS Other: All systems not noted in ROS Statement are negative. Past Medical History Past Medical History: Cancer, Sleep Apnea/CPAP/BIPAP, Thyroid Disorder Additional Past Medical History / Comment(s): mass back of head,prostate CA-no radiation or chemo 2019,uses cpap History of Any Multi-Drug Resistant Organisms: None Reported Additional Past Surgical History / Comment(s): FACIAL SURGERY,prostatectomy Past Anesthesia/Blood Transfusion Reactions: Postoperative Nausea & Vomiting (PONV) Past Psychological History: Anxiety, Depression Smoking Status: Former smoker - Past Family History Mother Family Medical History: No Reported History General Exam - General Exam Comments Initial Comments: GENERAL: Patient is well-developed and well-nourished. Patient is nontoxic and in no acute distress. HEAD: Atraumatic, normocephalic. EYES: Pupils equal round and reactive to light, extraocular movements intact, sclera anicteric, conjunctiva are normal. Eyelids were unremarkable. ENT: Oropharynx clear without exudates. Moist mucous membranes. NECK: Normal range of motion, supple without lymphadenopathy or JVD. LUNGS: Unlabored respirations. Breath sounds clear to auscultation bilaterally and equal. No wheezes rales or rhonchi. HEART: Regular rate and rhythm without murmurs, rubs or gallops. ABDOMEN: Soft, nontender, normoactive bowel sounds. No guarding, no rebound. No masses appreciated. MUSCULOSKELETAL: Normal extremities with adequate strength and normal range of motion, no pitting or edema. No clubbing or cyanosis. NEUROLOGICAL: Patient is alert and oriented x 3. SKIN: Warm, Dry, normal turgor, no rashes or lesions noted. Limitations: no limitations Course Vital Signs 01/12/21 12:44 Temperature 98.8 F Pulse Rate 83 Respiratory 18 Rate Blood Pressure 125/83 O2 Sat by Pulse 97 Oximetry Medical Decision Making - Medical Decision Making patient is a 60-year-old male here wanting a Covid test. He's had congestion and cough for 1 day. His vital signs are stable, exam is unremarkable. His rapid Covid is negative. I discussed with the patient is most likely viral in nature, he may continue with Mucinex for his symptoms. I recommended following up with his primary care. He is agreeable to this plan of care and he is stable for discharge. Return parameters were discussed with him and he verbalized understanding. - Lab Data Lab Results 01/12/21 Range/Units 12:51 Coronavirus (PCR) Not Detected (Not Detectd) Disposition Clinical Impression: Viral respiratory illness Disposition: HOME SELF-CARE Condition: Stable Instructions (If sedation given, give patient instructions): Upper Respiratory Infection (ED) Additional Instructions: Please return to the Emergency Department if symptoms worsen or any other concerns. Rapid covid test today is negative. Recommend continuing with Mucinex for your symptoms. Please follow-up with your primary care. Is patient prescribed a controlled substance at d/c from ED?: No Referrals: Checo Haji Jr, DO [Primary Care Provider] - 1-2 days Time of Disposition: 13:41
[2021-01-12 14:04] VITALS: BP 128/88; PULSE 80; RESP 16; TEMP 98.2
== END 2021-01-12 14:03 | disposition home or self-care (01) ==
LOC: EC 12:29
DX: J06.9 Acute upper respiratory infection, unspecified (principal); E07.9 Disorder of thyroid, unspecified; F41.9 Anxiety disorder, unspecified; F32.A Depression, unspecified; Z87.891 Personal history of nicotine dependence; Z85.46 Personal history of malignant neoplasm of prostate; Z20.822 Contact with and (suspected) exposure to COVID-19
CPT/HCPCS: 87635; 99283

== ENCOUNTER → 2021-03-24 | Outpatient (CLI) | payer OTHER ==
--- NOTE | 2021-03-24 15:04 | CT ---
EXAMINATION TYPE: CT ChestAbdPelvis w con DATE OF EXAM: 03/24/2021 COMPARISON: PET CT fusion 01/03/2021 HISTORY: B-cell lymphoma CT DLP: 2219 mGycm CONTRAST: CT scan of the chest, abdomen and pelvis is performed with Oral Contrast and with IV Contrast, patien t injected with 100 ml mL of Isovue 300. CT Chest: LUNGS: The lungs are clear and free of infiltrate or atelectasis. No pulmonary nodule or mass is det ected. No pleural effusion or CT evidence of interstitial lung disease. MEDIASTINUM: Thoracic aorta is of normal caliber. The heart is not enlarged. No evidence for media stinal mass or adenopathy. Linear parenchymal scar right lower lobe. Chronic elevation right hemidiap hragm. HILAR STRUCTURES: No evidence for mass. No hilar adenopathy is appreciated. OTHER: No significant abnormality. CONTRAST CT ABDOMEN AND PELVIS FINDINGS: LIVER/GB: Hepatic steatosis. Cholelithiasis. No space occupying hepatic lesion. Biliary tree is of normal caliber. PANCREAS: No inflammation. No distinct mass. SPLEEN: No splenic enlargement. No lesion seen. ADRENALS: No nodule. No thickening. KIDNEYS/BLADDER: No hydronephrosis. No nephrolithiasis. No distinct renal mass. BOWEL: Normal appendix. Normal bowel caliber. No inflammation. GENITAL ORGANS: No gross abnormality. LYMPH NODES: No greater than 1cm abdominal or pelvic lymph nodes are appreciated. AORTA: No significant abnormality. OSSEOUS STRUCTURES: No significant abnormality is seen. OTHER: No significant additional abnormality is seen. IMPRESSION: 1. No evidence for adenopathy throughout the chest abdomen or pelvis.
== END | disposition home or self-care (01) ==
LOC: RADCTMAIN 12:41
PROVIDERS: ATTEND Internal Medicine Hematology & Oncology
DX: C83.31 Diffuse large B-cell lymphoma, lymph nodes of head, face, and neck (principal)
CPT/HCPCS: 71260; 74177; Q9967

== ENCOUNTER 2021-04-28 06:27 | Day surgery (SDC) | payer OTHER ==
[2021-04-25 09:15] VITALS: BMI 36.6
[~2021-04-28 06:27] MED LIST changes: -DEXAMETHASONE SOD PHOSPHATE 4 MG/ML 1 ML VIAL IV ONE; -HYDROmorphone 0.5 MG/0.5 ML SYRINGE IVP PRN; +LIDOCAINE 1% (10MG/ML) FOR IV START INTRADERMA PRN; -MIDAZOLAM 2 MG/2 ML VIAL IV PRN; -ONDANSETRON 4 MG/2 ML VIAL IVP ONE; -Pre Op ABX Message 1 EACH MISC MISCELLANE ONE; -SCOPOLAMINE 1.5MG/72HR PATCH TRANSDERM ONE; +ceFAZolin 3 GM in SODIUM CHLORIDE 0.9% 100 ML IVPB PRN
[2021-04-28 06:50] VITALS: TEMP 97.5
[2021-04-28] MEDS ORDERED: HYDROmorphone 0.5 MG/0.5 ML SYRINGE IVP PRN (07:00)
[2021-04-28] MEDS ORDERED: ONDANSETRON 4 MG/2 ML VIAL ONE (07:03)
[2021-04-28] MEDS ORDERED: ONDANSETRON 4 MG/2 ML VIAL IVP ONE (07:12)
--- NOTE | 2021-04-28 07:27 | P.GSHP ---
History of Present Illness H&P Date: 04/28/21 Chief Complaint: Lymphoma 60-year-old male here today for Port-A-Cath removal. Patient recently completed his chemotherapy for lymphoma. No issues with the port at this time. Past Medical History Past Medical History: Cancer, Sleep Apnea/CPAP/BIPAP, Thyroid Disorder Additional Past Medical History / Comment(s): PROSTATE CA 2019., LARGE B-CELL LYMPHOMA WITH LAST CHEMO NOV 2020)., C-PAP MACHINE., HYPOTHYROID., ROSACEA. History of Any Multi-Drug Resistant Organisms: None Reported Past Surgical History: Prostate Surgery Additional Past Surgical History / Comment(s): PROSTATECTOMY WITH INGUINAL HERNIA (2018., MASS AT BACK OF HEAD REMOVED AND DIAGNOSED WITH LYMPHOMA (2020)., PORT-A-CATH Past Anesthesia/Blood Transfusion Reactions: Postoperative Nausea & Vomiting (PONV) Past Psychological History: Anxiety, Depression Smoking Status: Former smoker Past Alcohol Use History: None Reported Additional Past Alcohol Use History / Comment(s): quit smoking approx 2015, smoked on and off less than a ppd. Past Drug Use History: None Reported - Past Family History Mother Family Medical History: No Reported History Medications and Allergies Home Medications Medication Instructions Recorded Confirmed Type Citalopram Hydrobromide 40 mg PO DAILY 03/25/18 04/28/21 History [Citalopram HBr] Levothyroxine Sodium 125 mcg PO QAM 03/25/18 04/28/21 History Doxycycline [Vibramycin] 100 mg PO DAILY 04/25/21 04/28/21 History Allergies Allergy/AdvReac Type Severity Reaction Status Date / Time No Known Allergies Allergy Verified 04/28/21 06:45 Surgical - Exam Vital Signs Temp Pulse Resp BP Pulse Ox 97.5 F L 77 16 129/87 98 04/28/21 06:49 04/28/21 06:49 04/28/21 06:49 04/28/21 06:49 04/28/21 06:49 Physical exam: General: Well-developed, well-nourished HEENT: Normocephalic, sclerae nonicteric Abdomen: Nontender, nondistended Extremities: No edema Neuro: Alert and oriented Right chest wall Port-A-Cath in place Assessment and Plan (1) Lymphoma Narrative/Plan: 60-year-old male with history of lymphoma. Will remove Port-A-Cath this time. Current Visit: No Status: Acute Code(s): C85.90 - NON-HODGKIN LYMPHOMA, UNSPECIFIED, UNSPECIFIED SITE SNOMED Code(s): 964635266
[2021-04-28] MEDS ORDERED: MIDAZOLAM 2 MG/2 ML VIAL ONE (07:36)
[2021-04-28] MEDS ORDERED: fentaNYL (PF) 50 MCG/ML 2 ML AMP ONE (07:36)
[2021-04-28] MEDS ORDERED: PROPOFOL 10 MG/ML 20 ML VIAL IV ONE (07:36)
[2021-04-28] MEDS ORDERED: LIDOCAINE (PF) 10 MG/ML 5ML AMP SQ ONE ×2 (07:53)
[2021-04-28] MEDS ORDERED: NALOXONE 0.4 MG/ML 1 ML VIAL IV PRN (08:31)
--- NOTE | 2021-04-28 08:32 | P.OP ---
Date of Procedure: 04/28/21 Procedure(s) Performed: PREOPERATIVE DIAGNOSIS: Lymphoma POSTOPERATIVE DIAGNOSIS: Same PROCEDURE: Port-A-Cath removal SURGEON: Deidra EBL: Minimal ANESTHESIA: Sedation COMPLICATIONS: None OPERATIVE PROCEDURE: Patient was placed in the supine position. The patient was sedated per anesthesia that time. The chest was prepped and draped in the usual sterile fashion. The skin was localized with Marcaine solution. The previous incision was re-incised using a scalpel. The port was easily excised using acco mmodation of blunt dissection sharp dissection and electrocautery. The subcutaneous tissues were reapproximated using 3-0 Vicryl sutures. The skin was reapproximated using 4-0 Monocryl sutures. Skin glue was then applied. DISPOSITION: Stable to recovery room
[2021-04-28 08:39] VITALS: BP 102/69; PULSE 63; RESP 16
== END 2021-04-28 08:48 | disposition home or self-care (01) ==
LOC: OR 06:27
PROVIDERS: ATTEND Surgery
DX: C85.80 Other specified types of non-Hodgkin lymphoma, unspecified site (principal); E07.89 Other specified disorders of thyroid; E03.9 Hypothyroidism, unspecified; Z85.46 Personal history of malignant neoplasm of prostate; Z87.891 Personal history of nicotine dependence
CPT/HCPCS: 36590; J2250; J0690; J2405; J2001; J3010; J2704; J1644